=== PATIENT | female | born 1945 | race Caucasian/White ===

== ENCOUNTER 2018-06-27 09:25 | Emergency (ER) | payer MEDICARE ==
[~2018-06-27 09:25] MED LIST: ALBU2.5V8 INH; ALPR0.5T PO; ALPR1TAB6 PO; CLIN150C14 PO; DOCU-109 PO; DOMPERIDONE; DOXY100C2 PO; Enoxaparin Sodium SQ; FLUT16SP2 NS; FLUT1DIS3 IH; FURO-68 PO; FURO-69 PO; FURO40TA4 PO; GABA-586 PO; GLIM1TAB PO; HYDR-2161 PO; Hydrochlorothiazide PO; INSU100I11 SQ; INSU100I13 SQ; INSU100I17 SQ; INSU100I27 SQ; INSU100V SQ; INSU100V13 SQ; INSU100V31 SQ; LANS30CA66 PO; LEVO25TA55 PO; LEVO75TA5 PO; LINA5TAB4 PO; LOPE2TAB27 PO; LOSA100T14 PO; LOSA1TAB25 PO; MELA3TAB2 PO; METF500T16 PO; METF500T9 PO; MIRA50TA PO; MORP15TA PO; MORP15TA3 PO; MORP15TA80 PO; NYST60PO TP; OXYB5TAB7 PO; OXYC10TA PO; OXYC15TA PO; OXYC5CAP PO; OXYC5TAB88 PO; PANT40TA3 PO; PROM25SU33 RC; PROM25TA10 PO; RIZA10TA PO; RIZA5TAB7 PO; TOLT4CAP PO; TOPI200T6 PO; VANC1VIA3 MC; ZOLM5TAB13 PO
[2018-06-27] MEDS: IV NORMAL SALINE 1,000ML 1,000 ML IV ONE (10:15)
[2018-06-27 10:18] LABS: BASO # 0.1 x10^3/uL (0.0-0.2); BASO % 1 % (0-3); EOS % 0 % (0-3); HEMATOCRIT 31.3 % (36.0-47.0); HEMOGLOBIN 10.1 g/dL (12.0-15.5); LYMPH # 1.1 x10^3/uL (1.0-4.8); LYMPH % 6 % (24-48); MEAN CORPUSCULAR HEMOGLOBIN 29 pg (25-35); MEAN CORPUSCULAR HGB CONC 32 g/dL (31-37); MEAN CORPUSCULAR VOLUME 91 fL (79-100); MONO # 0.4 x10^3/uL (0.0-1.1); MONO % 2 % (0-9); NEUT # 15.9 x10^3uL (1.8-7.7); NEUT % 91 % (31-73); PLATELET COUNT 375 x10^3/uL (140-400); RED BLOOD COUNT 3.44 x10^6/uL (3.50-5.40); WHITE BLOOD COUNT 17.5 x10^3/uL (4.0-11.0)
--- NOTE | 2018-06-27 10:23 | PHYS DOC ---
Past History Past Medical History: Anxiety, COPD, Diabetes, GERD, Hypertension, Hypothyroid , Migraines, UTI, Other Past Surgical History: Other Smoking: Non-smoker Alcohol Use: None Drug Use: None Adult General Chief Complaint Chief Complaint: SKIN RASH/ABSCESS HPI HPI Patient is a 72 year old F who presents with skin abscess. Sofy is currently a resident at [facility]. She developed a left-sided abdominal wall lesion several days ago which is since become enlarged to a blister as well as surrounding skin redness and pain. She describes dizziness and lightheadedness. She has nausea without vomiting. She states that her pain is significantly worse with palpation and movement. She has no other exacerbating symptoms. Review of Systems Review of Systems Constitutional: She has had fever, chills, and bodyaches Eyes: Denies change in visual acuity, redness, or eye pain [] HENT: Denies nasal congestion or sore throat [] Respiratory: Denies cough or shortness of breath [] Cardiovascular: No additional information not addressed in HPI [] GI: Denies abdominal pain, nausea, vomiting, bloody stools or diarrhea [] : Denies dysuria or hematuria [] Musculoskeletal: Denies back pain or joint pain [] Integument: Denies rash or skin lesions [] Neurologic: Denies headache, focal weakness or sensory changes [] Endocrine: Denies polyuria or polydipsia [] All other systems were reviewed and found to be within normal limits, except as documented in this note. Family History Family History No pertinent family medical history was reported Current Medications Current Medications Current Medications Medications (Trade) Dose Ordered Sig/[facility] Start Time Stop Time Status Last Admin Dose Admin Levofloxacin/ Dextrose 150 ml @ 150 mls/hr 1X ONCE 06/27/18 10:20 06/27/18 11:19 Metronidazole 100 ml @ 100 mls/hr 1X ONCE 06/27/18 10:30 06/27/18 11:29 Sodium Chloride 1,000 ml @ 1,000 mls/hr 1X ONCE 06/27/18 10:00 06/27/18 10:59 Allergies Allergies Allergies Coded Allergies Type Severity Reaction Last Updated Verified Penicillins Allergy Intermediate 06/19/16 Yes Sulfa (Sulfonamide Antibiotics) Allergy Intermediate 06/19/16 Yes aspirin Allergy Intermediate 12/17/14 Yes cephalexin Allergy Intermediate 12/17/14 Yes diazepam Allergy Intermediate 01/02/16 Yes diphenhydramine Allergy Intermediate 12/17/14 Yes Physical Exam Physical Exam Constitutional: Morbidly obese and ill-appearing HENT: Normocephalic, atraumatic, dry mucous membranes Eyes: EOMI, conjunctiva normal, no discharge. [] Neck: Normal range of motion, no tenderness, supple, no stridor. [] Cardiovascular:Heart rate regular rhythm, tachycardia and hypotension Lungs & Thorax: Decreased breath sounds Abdomen: Bowel sounds normal, soft, no tenderness, no masses, no pulsatile masses. [] Skin: Warm, dry, no erythema, no rash. [] 8 cm bullous on the left lateral abdomen containing serosanguineous fluid, surrounding erythema and induration on the left half of her abdomen extending posteriorly to the flank. Deferred exam of her buttocks however reports state that she has pressure ulcers Extremities: No tenderness, no cyanosis, no clubbing, ROM intact, no edema. [] Neurologic: Alert and oriented X 3, normal motor function, normal sensory function, no focal deficits noted. [] Psychologic: Affect normal, judgement normal, mood normal. [] Current Patient Data Vital Signs Initial blood pressures were 70s over 30s with a heart rate in the 120s Please review nursing documentation for specifics Lab Results Labs pending EKG EKG [] Radiology/Procedures Radiology/Procedures Imaging pending Course & Med Decision Making Course & Med Decision Making Pertinent Labs and Imaging studies reviewed. (See chart for details) Based on Sofy's initial evaluation she is in septic shock. 2 IVs were established and IV fluids were started. Blood cultures were obtained and she was started on empiric Levaquin and Flagyl. Dr. Bowie with surgery was contacted and the case was reviewed. A hospitalist with [facility] was also contacted. Her case was reviewed and her care was accepted to the ICU at [facility] Dragon Disclaimer Dragon Disclaimer This electronic medical record was generated, in whole or in part, using a voice recognition dictation system. Departure Departure: Impression: Primary Impression: Septic shock Additional Impression: Cellulitis and abscess of trunk Disposition: 05 TRANSFER OTHER Referrals: NYASIA GARCIA MD (PCP) Problem Qualifiers JAYLEN ARCHIBALD MD Jun 27, 2018 10:23
[2018-06-27] MEDS ORDERED: IV NORMAL SALINE 1,000ML 1,000 ML IV ONE (10:30)
[2018-06-27 10:41] LABS: CALCIUM 9.2 mg/dL (8.5-10.1); CREATININE 4.5 mg/dL (0.6-1.0); GFR 9.6
[2018-06-27 10:42] LABS: POTASSIUM 4.2 mmol/L (3.5-5.1)
[2018-06-27] MEDS: INSULIN REGULAR 100 UNIT/ML 3ML VIAL. IV ONE (10:50)
[2018-06-27 10:55] VITALS: BP 110/67
[2018-06-27 11:05] LABS: % BANDS 9 % (0-9); % BASOS 1 % (0-3); % LYMPHS 11 % (24-48); % MONOS 1 % (0-10); % SEGS 78 % (35-66)
[2018-06-27 11:06] LABS: PLT ESTIMATE INCREASED (ADEQUATE)
[2018-06-27 11:07] LABS: TOXIC GRANULATION PRESENT; TOXIC VACUOLATION PRESENT
[2018-06-27] MEDS ORDERED: INSULIN REGULAR 100 UNIT/ML 3ML VIAL. IV ONE (11:10)
[2018-06-27 11:19] LABS: HYPOCHROMIA SLIGHT; POLYCHROMASIA SLIGHT
[2018-06-27 11:21] LABS: ANISOCYTOSIS SLIGHT
--- NOTE | 2018-06-27 11:38 | RAD ---
ABDOMEN LTD History: Redness of the left abdomen, visible "bubble" Comparison: None. Findings: Sonographic images directed toward the site of concern of the left abdomen are submitted. Site of concern corresponds apparently with a superficial fluid collection which was difficult to image and demonstrate due to artifact. Surrounding the superficial collection, there is heterogeneity of the soft tissues reportedly corresponding with area of visible redness, no peripheral defined fluid collection. Impression: 1. There is superficial fluid collection associated with visible abnormality of the left abdomen although difficult to image and demonstrate due to artifact. There is heterogeneity of the soft tissues surrounding the superficial fluid collection which may be due to cellulitis/phlegmon. Electronically signed by: Brett Huber MD (06/27/2018 11:33 AM) [id number]
== END 2018-06-27 11:05 | disposition short-term general hospital (02) ==
LOC: ER 09:25
DX: R65.21 Severe sepsis with septic shock (principal); L02.211 Cutaneous abscess of abdominal wall; L03.311 Cellulitis of abdominal wall; F41.9 Anxiety disorder, unspecified; J44.9 Chronic obstructive pulmonary disease, unspecified; E11.9 Type 2 diabetes mellitus without complications; K21.9 Gastro-esophageal reflux disease without esophagitis; I10 Essential (primary) hypertension; E03.9 Hypothyroidism, unspecified; G43.909 Migraine, unspecified, not intractable, without status migrainosus; Z87.440 Personal history of urinary (tract) infections; Z88.0 Allergy status to penicillin; Z88.2 Allergy status to sulfonamides; Z88.6 Allergy status to analgesic agent; Z88.1 Allergy status to other antibiotic agents; Z88.8 Allergy status to other drugs, medicaments and biological substances
CPT/HCPCS: 36415; 76705; 80048; 83605; 85007; 85025; 87040; 96365; 96375; 99285; J1815; J1956; J7030